=== PATIENT | female | born 1945 | race Caucasian/White ===

== ENCOUNTER 2023-09-16 07:00 | Emergency (ER) | payer MEDICARE, OTHER, SELFPAY ==
[2023-09-16] VITALS (7 sets, daily range): BP systolic 130–159; BP diastolic 73–101; BMI 27.5
--- NOTE | 2023-09-16 07:48 | ED.GENMED ---
History of Present Illness
<Kasey Simons PA-C - Last Filed: 09/16/23 13:55>
General
Chief Complaint: Headache
Source: patient
Exam Limitations: none
Time Seen by Provider: 09/16/23 07:32
Nursing documentation reviewed up to this point in time: agreed with
Travel History
Have you had any contact with someone who has COVID-19?: No
Do you have any symptoms of coronavirus? Fever > 100 degrees, chills, cough, shortness of breath, sore throat, loss of taste or smell, muscle aches, or headache?: No
History of Present Illness
History of Present Illness:
pt is a 78 y/o F with h/o HTN, HLD, afib on eliquis
says she drank rum with lunch 'probably a little more than i should have'
she has been drinking more alcohol daily than usual since her in apr
she ewnt to sleep normally and got awoken by what sounded like a loud crack and then was followed by a sharp pain in her left parietal region of her head
it lasted 1 second
she says she was nervous because she has heard of other friends describe stroke/aneurysm like that
she wasn't sure what to do
she stayed home for a few hours, had some coffee before deciding to come in
now she has mild headache, which she thinks is from her hangover
she denies dizziness, vision changes, neck pain, vomiting, confusion, ewakness/numbness, syncope
no trauma yesterday
she describess 2/10 headache now
didn't take her carvedilol or eliquis las tnight.
Past History
<Kasey Simons PA-C - Last Filed: 09/16/23 13:55>
Past History
ED Past Medical History: Arrthythmia, HTN and Hypercholesterolemia
ED Past Surgical History: Appendectomy and Orthopedic
Social History
Tobacco: Non-smoker
Alcohol: Daily
Drug: None
Personal:
Living: with family
Employment: Retired
Family History
Family History: Other (Noncontributory)
Review of Systems
<Kasey Simons PA-C - Last Filed: 09/16/23 13:55>
Review of Systems
Allergies reviewed?: Yes
All Other Systems: Not applicable
Phy Exam
<Kasey Simons PA-C - Last Filed: 09/16/23 13:55>
Physical Exam
Physical Exam:
GENERAL: Alert , in no apparent distress
HEAD: NCAT
EYE: pupils equal and reactive, no nystagmus, no photophobia
NECK: Supple,full rom, nontender
ENT: o/p clr, mmm.
CARDIAC: Regular rate and rhythm . no edema
LUNGS: Clear breath sounds bilaterally, no acute respiratory distress, no wheezes/rales/rhonchi
ABDOMEN: Soft, without focal tenderness, no r/g, no cvat
NEUROLOGICAL: Alert and orientedx 4, cn intact, no facial asymmetry, 5/5 strength in UE/LE, sensation intact, romberg neg, ambulates without assistance, neg pronator drift
SKIN: Warm and dry, skin intact.
MUSCULOSKELETAL: No edema, well perfused.
PSYCH: Normal and appropriate interaction.
Course
<Kasey Simons PA-C - Last Filed: 09/16/23 13:55>
Orders/Labs/Results
Orders:
Orders
09/16/23 07:47
CT Head W/o Iv Contrast Urgent
Comment:
Reason For Exam: loud crack and sharp pain at 4 am
0.9% Sodium Chloride 500 ml [Nss] 500 ml IV BOLUS
09/16/23 07:57
Alcohol Urgent
Complete Blood Count/With Diff Urgent
Comprehensive Metabolic Panel Urgent
09/16/23 09:49
Add On- LAB Urgent
Tests Added?: Alcohol
Abnormal Lab Results
09/16/23
07:57
MCH 31.8 H pg
(27.0-31.0)
Absolute Monos (auto) 0.7 H 10^3/uL
(0.1-0.6)
Monocytes % 10.9 H %
(1.7-9.3)
Sodium 133 L mmol/L
(135-145)
BUN 18 H mg/dl
(7-17)
09/16/23 07:57
09/16/23 07:57
Vital Signs
Initial and Last Documented VS:
Initial Vital Signs
Temp Pulse Resp BP Pulse Ox
97.6 F 57 18 130/94 98
09/16/23 07:04 09/16/23 07:04 09/16/23 07:04 09/16/23 07:04 09/16/23 07:04
Last Documented Vital Signs
Temp Pulse Resp BP Pulse Ox
97.5 F 64 20 147/79 98
09/16/23 09:35 09/16/23 10:42 09/16/23 10:42 09/16/23 10:42 09/16/23 10:42
<Jae Lilly, DO - Last Filed: 09/16/23 08:05>
Orders/Labs/Results
Orders:
Orders
09/16/23 07:47
CT Head W/o Iv Contrast Urgent
Comment:
Reason For Exam: loud crack and sharp pain at 4 am
0.9% Sodium Chloride 500 ml [Nss] 500 ml IV BOLUS
09/16/23 07:57
Alcohol Urgent
Complete Blood Count/With Diff Urgent
Comprehensive Metabolic Panel Urgent
09/16/23 09:49
Add On- LAB Urgent
Tests Added?: Alcohol
Abnormal Lab Results
09/16/23
07:57
MCH 31.8 H pg
(27.0-31.0)
Absolute Monos (auto) 0.7 H 10^3/uL
(0.1-0.6)
Monocytes % 10.9 H %
(1.7-9.3)
Sodium 133 L mmol/L
(135-145)
BUN 18 H mg/dl
(7-17)
09/16/23 07:57
09/16/23 07:57
Vital Signs
Initial and Last Documented VS:
Initial Vital Signs
Temp Pulse Resp BP Pulse Ox
97.6 F 57 18 130/94 98
09/16/23 07:04 09/16/23 07:04 09/16/23 07:04 09/16/23 07:04 09/16/23 07:04
Last Documented Vital Signs
Temp Pulse Resp BP Pulse Ox
97.5 F 64 20 147/79 98
09/16/23 09:35 09/16/23 10:42 09/16/23 10:42 09/16/23 10:42 09/16/23 10:42
<Kasey Simons PA-C - Last Filed: 09/16/23 13:55>
MDM/Problems Addressed
Differential Diagnosis Includes:
SAH, migraine, dehydration, hangover
MDM/Problems Addressed:
78 y/o F
reported mild to mod daily alcohol use recently
woke up to what sounded like a loud crack and then a very brief pain in he rhead
she stayed at home and worreid about it until coming in
she has minimal to zero headache now
she feels like she is a little hungover from drinking rum yesterday
she is clinically sober
neuro intact
initially hyp[ertenevie but improved without treatment
d/w ed attending dr. lilly who saw her as well and agreed with non con head ct (within 6 hours of pain) which is neg and d/c home
<Kasey Simons PA-C - Last Filed: 09/16/23 13:55>
*Critical Care Note
Total Time (30-74mins, 75-104mins- exclusive of procedures): Not Applicable
ED Attending Note
<Kasey Simons PA-C - Last Filed: 09/16/23 13:55>
-
Portions of this chart may have been created with voice recognition software.� Occasional wrong word or��sound alike� substitutions may have occurred due to the inherent limitations of voice recognition software.
<Jae Lilly, - Last Filed: 09/16/23 08:05>
ED Attending Note
Patient seen and examined by attending physician: Yes
I performed the substantive portion of visit, reviewed & personally made and approve the management plan that is documented in note by myself or MARTHA.: Yes
Discharge Plan
Departure
Patient Disposition: Home (Routine Discharge)
Date of Disposition: 09/16/23
Time of Disposition: 10:37
Patient with high blood pressure during this ER visit?: Yes
Condition: Fair
Covid-19: Not Applicable
Discharge Problem:
Headache
Instructions: Headache, Adult (DC)
Prescriptions:
No Action
ascorbic acid (vitamin C) [Vitamin C] 1,000 MG tablet
1,000 mg PO DAILY
carvedilol 6.25 MG tablet
6.25 mg PO BID
vitamin B complex 1 TAB tablet
1 tab PO DAILY
vitamin E 400 UNIT capsule
400 unit PO DAILY
cholecalciferol (vitamin D3) [Vitamin D3] 1,000 UNIT capsule
1,000 unit PO DAILY
fish oil-dha-epa 1 EACH capsule
1 ea PO DAILY
Eliquis 5 MG tablet
5 mg PO BID
pantoprazole 40 MG tablet,delayed release (DR/EC)
40 mg PO DAILY Qty: 14 0RF
Referrals:
Usha Cadena MD [Family Provider] - Follow up in 2-3 days
Activity Restrictions/Additional Instructions:
We are not sure the cause of your headache but you had no findings concerning on a CAT scan for any brain hemorrhage or stroke. Your blood work was normal. Try to drink more water and avoid alcohol. You can take Tylenol as needed for headache.
Return for sudden worsening headache, thunderclap headache, nausea or vomiting, passing out, confusion, dizziness or any concerns
Interventions
Interventions:
*Risk Screen - Suicide Last Done: 09/16/23 07:19
*General Assessment Last Done: 09/16/23 07:19
*Neglect/Abuse Screening Last Done: 09/16/23 07:19
ED- Fall Risk Assessment Last Done: 09/16/23 07:19
*ED COVID-19 Vaccine History Last Done: 09/16/23 07:04
*Nursing Disposition Last Done: 09/16/23 11:08
ED- Neurological Assessment Last Done: 09/16/23 07:19
Discharge Date and Time
Discharge Date/Time: 09/16/23 11:08
Print Language: [place]
[2023-09-16] MEDS: NSS 500 IV (08:03)
[2023-09-16 08:15] LABS: % Eosinophils 3.3 % (0-6); % Immature Granulocytes 0.3 % (0-0.5); % Monocytes 10.9 % (1.7-9.3); % Neutrophils 59.5 % (42.2-75.2); Absolute Basophils 0.1 10^3/uL (0-0.2); Absolute Eosinophils 0.2 10^3/uL (0-0.7); Absolute Lymphocytes 1.5 10^3/uL (1.2-3.4); Absolute Monocytes 0.7 10^3/uL (0.1-0.6); Absolute Neutrophils 3.6 10^3/uL (1.4-6.5); Hemoglobin 13.4 g/dL (12.0-16.0); Mean Corp Hgb Conc. 34.4 g/dL (33.0-37.0); Mean Corpuscular Hgb 31.8 pg (27.0-31.0); Mean Corpuscular Volume 92.4 fL (81.0-99.0); Mean Platelet Volume 9.6 fL (7.4-10.4); Nucleated Red Blood Cells % 0 %; Platelet Count 169 10^3/uL (130-400); Red Blood Cell Count 4.22 10^6/uL (4.20-5.40); Red Cell Dist. Width 13.2 % (11.5-14.5)
[2023-09-16 08:33] LABS: ALT (SGPT) 18 U/L (0-35); AST (SGOT) 28 U/L (14-36); Albumin 3.9 g/dl (3.5-5.0); Alkaline Phosphatase 76 U/L (38-126); Blood Urea Nitrogen 18 mg/dl (7-17); Calcium 9.4 mg/dl (8.4-10.2); Carbon Dioxide 24 mmol/L (22-30); Chloride 105 mmol/L (98-107); Estimated Creatinine Clearance 74 ml/min; Glucose 94 mg/dl (70-99); Potassium 4.3 mmol/L (3.5-5.1); Sodium 133 mmol/L (135-145); Total Bilirubin 0.4 mg/dl (0.2-1.3); Total Protein 6.4 g/dl (6.3-8.2); eGFR > 60.00
--- NOTE | 2023-09-16 09:50 | EDRN ---
the pt pressed the call perez and this RN entered the pts room, the pt stated to this RN, 'I have to use the bathroom sorry, it was all that alcohol i drank so i'm hung over, but i also had a ton of coffee this morning', this RN unhooked the pt from
the monitor and the pt was able to ambulate to the bathroom and back to the stretcher with no issues, will continue to monitor the pt closely
[2023-09-16 11:04] LABS: Alcohol None Detected
== END 2023-09-16 11:08 | disposition home or self-care (01) ==
LOC: EMR 07:00
PROVIDERS: Physician Assistant; EMERGENCY PHYSICIAN Emergency Medicine; FAMILY PHYSICIAN Student in an Organized Health Care Education/Training Program
DX: R51.9 Headache, unspecified (principal); I10 Essential (primary) hypertension; E78.00 Pure hypercholesterolemia, unspecified; I48.91 Unspecified atrial fibrillation; Z79.01 Long term (current) use of anticoagulants; Z96.641 Presence of right artificial hip joint
CPT/HCPCS: 99284; 96360; 70450; 80053; 82077; 85025

== ENCOUNTER → 2023-10-27 07:17 | Outpatient (REF) | payer MEDICARE, OTHER, SELFPAY ==
[2023-10-27 08:47] LABS: HDL Cholesterol 91 mg/dl; LDL Cholesterol, Calculated 135 mg/dl; Total Cholesterol 240 mg/dl (50-199); Triglyceride 72 mg/dl (10-149); Very Low Density Lipoprotein 14 mg/dl (0-30)
== END ==
LOC: REG 07:17
PROVIDERS: ATTENDING PHYSICIAN Internal Medicine; FAMILY PHYSICIAN Student in an Organized Health Care Education/Training Program
DX: E78.00 Pure hypercholesterolemia, unspecified (principal)
CPT/HCPCS: 36415; 80061

== ENCOUNTER → 2023-11-21 08:43 | Outpatient (REF) | payer MEDICARE, OTHER, SELFPAY ==
[2023-11-21 10:07] LABS: % Eosinophils 2.8 % (0-6); % Immature Granulocytes 0.3 % (0-0.5); % Lymphocytes 23.1 % (20.5-51.1); % Neutrophils 62.8 % (42.2-75.2); Absolute Basophils 0.1 10^3/uL (0-0.2); Absolute Eosinophils 0.2 10^3/uL (0-0.7); Absolute Lymphocytes 1.4 10^3/uL (1.2-3.4); Absolute Monocytes 0.6 10^3/uL (0.1-0.6); Absolute Neutrophils 3.8 10^3/uL (1.4-6.5); Hematocrit 40.5 % (37.0-47.0); Mean Corp Hgb Conc. 34.6 g/dL (33.0-37.0); Mean Corpuscular Hgb 31.3 pg (27.0-31.0); Mean Corpuscular Volume 90.6 fL (81.0-99.0); Mean Platelet Volume 9.9 fL (7.4-10.4); Nucleated Red Blood Cells % 0 %; Platelet Count 161 10^3/uL (130-400); Red Blood Cell Count 4.47 10^6/uL (4.20-5.40); Red Cell Dist. Width 12.7 % (11.5-14.5)
[2023-11-21 10:40] LABS: ALT (SGPT) 19 U/L (0-35); AST (SGOT) 27 U/L (14-36); Alkaline Phosphatase 69 U/L (38-126); Blood Urea Nitrogen 14 mg/dl (7-17); Calcium 9.6 mg/dl (8.4-10.2); Carbon Dioxide 26 mmol/L (22-30); Chloride 103 mmol/L (98-107); Glucose 121 mg/dl (70-99); Potassium 4.1 mmol/L (3.5-5.1); Sodium 135 mmol/L (135-145); Total Bilirubin 0.5 mg/dl (0.2-1.3); Total Protein 6.6 g/dl (6.3-8.2); eGFR > 60.00
[2023-11-21 10:56] LABS: Free T3 2.98 pg/ml (2.77-5.27)
[2023-11-21 11:09] LABS: TSH Reflex To Free T4 1.22 uIU/ml (0.47-4.68)
[2023-11-22 16:02] LABS: Thyroglobulin Antibodies <0.9 IU/mL (0.0-4.0); Thyroid Peroxidase Ab (TPO) <0.3 IU/mL (0.0-9.0)
[2023-11-23 00:57] LABS: Thyroid Stim. Immunoglobulin <0.10 IU/L (<=0.54)
== END ==
LOC: REG 08:43
PROVIDERS: ATTENDING PHYSICIAN Student in an Organized Health Care Education/Training Program
DX: Z00.00 Encounter for general adult medical examination without abnormal findings (principal); R06.09 Other forms of dyspnea; E04.1 Nontoxic single thyroid nodule; E05.00 Thyrotoxicosis with diffuse goiter without thyrotoxic crisis or storm; I48.0 Paroxysmal atrial fibrillation; Z79.1 Long term (current) use of non-steroidal anti-inflammatories (NSAID)
CPT/HCPCS: 36415; 80053; 84443; 84445; 84481; 85025; 86376; 86800

== ENCOUNTER → 2023-11-22 13:41 | Outpatient (REF) | payer MEDICARE, OTHER, SELFPAY | LOC: RCS 13:41 | PROVIDERS: ATTENDING PHYSICIAN Student in an Organized Health Care Education/Training Program | DX: R06.09 Other forms of dyspnea (principal) | CPT/HCPCS: 93017 ==

== ENCOUNTER → 2023-11-23 10:53 | Outpatient (REF) | payer MEDICARE, OTHER, SELFPAY | LOC: HWRCS 10:53 | PROVIDERS: ATTENDING PHYSICIAN Internal Medicine; FAMILY PHYSICIAN Student in an Organized Health Care Education/Training Program | DX: I48.0 Paroxysmal atrial fibrillation (principal); I35.1 Nonrheumatic aortic (valve) insufficiency; I34.0 Nonrheumatic mitral (valve) insufficiency | CPT/HCPCS: 93306 ==

== ENCOUNTER → 2024-01-22 09:50 | Outpatient (REF) | payer MEDICARE, OTHER, SELFPAY | LOC: HWRAD 09:50 | PROVIDERS: ATTENDING PHYSICIAN Student in an Organized Health Care Education/Training Program | DX: Z12.31 Encounter for screening mammogram for malignant neoplasm of breast (principal); M85.80 Other specified disorders of bone density and structure, unspecified site; Z78.0 Asymptomatic menopausal state | CPT/HCPCS: 77063; 77067; 77080 ==